=== PATIENT | male | born 1970 | race Caucasian/White ===

== ENCOUNTER 2024-02-28 13:57 | Outpatient (CLI) | payer OTHER, SELFPAY | END 2024-02-28 13:58 | disposition home or self-care (01) | LOC: LKVREF 13:58 | PROVIDERS: PCP Emergency Medicine; Visit Provider Emergency Medicine | DX: R07.89 Other chest pain (principal) | CPT/HCPCS: 86140 ==

== ENCOUNTER 2024-03-11 13:58 | Outpatient (CLI) | payer OTHER, SELFPAY ==
--- OUTSIDE RECORDS SUMMARY | 2024-03-11 14:02 | XMS_ITS | Data Portability ---
Author Organization [place] [facility] Address [address] [place] [address] Care Team Providers Care Putty Patcher Name Role Phone ALBARO GUARDADO Primary Care Provider Assessment No assessment recorded. Plan of Treatment Reminders Order Date Submit Date Provider Last Modified By Organization Details Last Modified Time Details Appointments None recorded. Lab urinalysis , dipstick 2019 020 [email or web address] [facility], [facility], [address] [facility] [address], [place], [address], 0 16:43:46 PSA, serum or plasma 2019 021 [email or web address] [facility], [facility], [address], [place], [address], 1 08:51:40 PSA, serum or plasma 2020 022 [email or web address] [facility], [facility], [address], [place], [address], 2 17:34:35 PSA, serum or plasma 2020 022 [facility], [facility], [address], [place], [address], 2 17:34:35 PSA, serum or plasma 2021 022 [email or web address] [facility], [address], [address], [place], [address], 3 08:39:55 PSA, total, serum or plasma 2022 023 [email or web address] [facility], [address], [address], [place], [address], 4 10:39:05 Referral None recorded. Procedures bladder scan (PROC) 2019 020 [email or web address] [facility], [address], [address], [place], [address], 0 16:43:46 Surgeries None recorded. Imaging MRI, prostate, w/wo contrast 2019 020 [facility], [address], [address], [place], [address], 0 14:43:37 Medication Orders None recorded. Patient TargetsNo targets recorded. Patient InstructionsNo instructions recorded. Reason for Referral None Reported. Results Created Date Observation Date Name Description Value Unit Range Abnormal Flag Note LastModifiedBy Organization Detail LastModifiedTime 03/08/2020 bladd er scan (PROC ) Volume (in mL) 158 mLs Not Available [facility] [address], [place], [address], 03/08/2020 16:38:37 03/08/2020 urina lysis , dipst ick pH-Status 7.5 Not Available [facility] [address], [place], [address], 03/08/2020 16:38:32 03/08/20 20 bladd er scan (PROC ) No observ ation record ed. [email or web address] [facility] [address], [place], [address], 03/08/2020 17:33:08 03/19/20 20 03/19/2020 MRI, prost ate, w/wo contr ast No observ ation record ed. [facility] [address], [place], [address], 03/22/2020 10:45:50 Result Notes None recorded. Problems Name Problem SNOMED Code Status Onset Date Resolution Date Notes Provider Name and Address Organization Details Recorded Time Prostate specific antigen above reference range [id number] Active 021 Katarnaldodylon reddy [facility] 1 17:03:26 Problem Notes None recorded. Procedures Surgical History Date Name Laterality Status Provider Name and Address Organization Details Recorded Time 2012 Colonoscopy completed Marimar Serra [facility] 1 09:16:04 [facility] 16:18:37 esophagogastroduodenoscopy [facility] 0 16:22:28 Imaging Results Imaging Date Name Status LastModified by Organiz ation Details LastModified Time 03/08/2020 bladder scan (PROC) completed [email or web address] [facility] [address] [facility] [address], [place], [address], 03/08/2020 17:33:08 03/19/2020 MRI, prostate, w/wo contrast completed [facility] [address], [place], [address], 03/22/2020 10:45:50 Procedure Notes None recorded. Medical Equipment None Reported. Allergies Allergen ID Allergen Name Allergen Category Reaction Reaction Severity Criticality Documentation Date Start Date Code Code System Note Provider Name and Address Organization Details Recorded Time 923189 aspirin medicatio n Not available Not available Not available 03/08/2020 1191 RxNorm Martina reddy [facility] 16:18:19 Medications Name Sig Start Date Stop Date Status Note LastModified by Organization Details LastModified Time prednisone 20 mg tablet TAKE 2 TABLETS BY MOUTH EVERY DAY 12/27 completed Not Available Not Available Not Available omeprazole 40 mg capsule,srinivas yed release TAKE 1 CAPSULE BY MOUTH DAILY active Not Available Not Available No t Available omeprazole 10/25 completed Not Available Not Available Not Available Vitals Date Recorded Body height Body mass index (BMI) Body weight Provider Name and Address Organization Details Last Updated DateTime 12/27/2022 172.72 cm 28.1 kg/m2 80386.59 g Anabelle Stephens [facility] 12/27/2022 09:52:16 Date Recorded Body height Body mass index (BMI) Body weight Heart rate Provider Name and Address Organization Details Last Updated DateTime 03/08/2020 172.72 cm 27.4 kg/m2 12950.63 g 52 /min Martina Romero [facility] 03/08/2020 16:44:50 Date Recorded Body height Body mass index (BMI) Body weight Provider Name and Address Organization Details Last Updated DateTime 10/25/2020 172.72 cm 27.4 kg/m2 39861.63 g April Chung [facility] 10/25/2020 16:58:41 Date Recorded Body height Body mass index (BMI) Body weight Provider Name and Address Organization Details Last Updated DateTime 11/07/2021 172.72 cm 28.1 kg/m2 86355.59 g Libby Rene [facility] 11/07/2021 16:51:37 Social History Question Answer Notes LastModified by Organizat ion Details LastModified Time Tobacco Smoking Status Former Smoker Martina reddy [facility] 03/08/2020 16:18:51 What Is Your Level Of Alcohol Consumption? Occasional Information not available 10/25/2020 How Many Times Per Week Do You Consume Alcohol? 5-7 Times Per Week [email or web address] Information not available 12/27/2022 What Is Your Level Of Caffeine Consumption? Occasional Information not available 10/25/2020 When Did You Quit Smoking? 14+yearsshanda [email or web address] Information not available 12/27/2022 What Was The Date Of Your Most Recent Tobacco Screening? 12/27/2022 [email or web address] Information not available 12/27/2022 Has Tobacco Cessation Counseling Been Provided? No [email or web address] Information not available 12/27/2022 Do You Or Have You Ever Used Any Other Forms Of Tobacco Or Nicotine? No [email or web address] Information not available 12/27/2022 Sex: Unknown Functional Status None recorded. Mental Status None recorded. Family History Relationship Description Onset Age of this Age Resolved Age Notes LastModified by Organization Details LastModified Time Father Family history of cardiac disorder [email or web address] Not available 2019 16:22:42 Paternal Grandmother Family history of diabetes mellitus [email or web address] Not available 2019 16:22:50 Medical History Condition Response Sexually Transmitted Infection N Diabetes N Bleeding Disorder N Other Y High Blood Pressure N Kidney Stones N Cancer N Lung Disease N Depression N High Cholesterol Y GERD/Acid Reflux N Heart Disease N Immunizations Vaccine Type Date Status Provider Name and Address Organization Details Recorded Time Influenza, split virus, quadrivalent, PF 03/19/2015 completed Libby reddy [facility] 11/07/2021 16:51:42 Influenza, split virus, quadrivalent, PF [facility] 16:51:42 COVID-19, mRNA, LNP-S, PF, 30 mcg/0.3 mL dose 04/04/2020 completed Libby reddy [facility] 11/07/2021 16:51:42 Influenza, split virus, trivalent, PF 02/25/2014 completed Libyb reddy [facility] 11/07/2021 16:51:42 Influenza, split virus, trivalent, PF 03/26/2011 completed Libby reddy [facility] 11/07/2021 16:51:42 COVID-19, mRNA, LNP-S, PF, 30 mcg/0.3 mL dose 03/09/2021 roxy reddy [facility] 11/07/2021 16:51:42 Influenza, split virus, quadrivalent, preservative 01/31/2021 completed Libby Rene null, [facility] 11/07/2021 16:51:42 Influenza, split virus, trivalent, preservative 03/13/2007 completed Libby Rene null, [facility] 11/07/2021 16:51:42 COVID-19, mRNA, LNP-S, PF, 30 mcg/0.3 mL dose 08/17/2020 completed Libby Rene null, [facility] 11/07/2021 16:51:42 Tdap 03/13/2007 completed Libby Rene null, [facility] 11/07/2021 16:51:42 Influenza, split virus, quadrivalent, PF 02/16/2016 completed Libby reddy, [facility] 11/07/2021 16:51:42 COVID-19, mRNA, LNP-S, PF, 30 mcg/0.3 mL dose 09/07/2020 [facility] 16:51:42 Influenza, split virus, trivalent, preservative 02/22/2017 completed Libby reddy, [facility] 11/07/2021 16:51:42 Influenza, split virus, quadrivalent, PF 04/04/2019 completed Libby reddy, [facility] 11/07/2021 16:51:42 MMR 03/31/2015 completed Libby Rene null, [facility] 11/07/2021 16:51:42 Influenza, split virus, trivalent, preservative 02/24/2013 completed Libby reddy, [facility] 11/07/2021 16:51:42 Influenza, split virus, trivalent, preservative 02/12/2012 [facility] 16:51:42 Td (adult), 2 Lf tetanus toxoid, preservative free, adsorbed 02/21/2017 completed [place] [facility] 11/07/2021 16:51:42 Past Encounters Encounter ID Performer Location Encounter Start Date Encounter Closed Date Diagnosis/Indication Diagnosis SNOMED-CT Code Diagnosis ICD10 Code [id number] Renan Hernandez MD [facility] [address] [place] [address] 03/08/2020 16:15:40 03/17/2020 14:43:37 Prostate specific antigen above reference range 976820185 R97.20 [id number] Renan Hernandez MD [facility] [address] [facility] [address] [place] [address] 10/25/2020 16:53:03 10/27/2020 16:17:30 Prostate specific antigen above reference range 734495034 R97.20 [id number] Renan Hernandez MD [facility] [address] [facility] [address] [facility] [address] [place] [address] 11/07/2021 16:41:30 11/09/2021 11:16:06 Prostate specific antigen above reference range [id number] R97.20 [id number] Renan Hernandez MD [place] [address] [facility],[address] [place] [address] 12/27/2022 09:41:50 01/01/2023 14:52:36 Prostate specific antigen above reference range 656111622 R97.20 Health Concerns Section Related Observation LastModified by Organization Detai ls LastModified Time None Recorded Concern Status LastModified by Organization Details LastModified Time None Recorded Advance Directives Directive None Recorded Payers Encounter Date Sequence Insurance Name Policy Number Policy Hahn Covered Member ID Hahn Member ID Guarantor Name 03/08/2020 1 PREFERREDONE [id number] Ryan Chapmanilinger [id number] Ryan Raygoza Zeilinger 10/25/2020 1 PREFERREDONE [id number] Ryan Chapmanilinger [id number] Ryan Raygoza Zeilinger 11/07/2021 1 PREFERREDONE [id number] Ryan Cantu Zeilinger [id number] Ryan Raygoza Zeilinger 12/27/2022 1 PREFERREDONE [id number] Ryan Dumont [id number] Ryan Dumont Notes Date Note Type Note Provider Name and Address Organization Details Recorded Time 03/08/2020 text/html HPI Notes: Ryan is a 49 year old male patient with an elevated PSA, 3.9 in April 2019. He another PSA test with his work recently that was 4.0. No family history of prostate cancer. He has no urinary difficulties. He does have occasional penile pain with straining for bowel movements but no other urological complaints. Prior surgical history significant for umbilical hernia repair. Renan Hernandez MD [address] [place] [address],[address], [address], [facility] 03/08/2020 17:06:20 10/25/2020 text/html HPI Notes: 03/08/20: Ryan is a 50 year old male patient with an elevated PSA, 3.9 in April 2019. He another PSA test with his work recently that was 4.0. No family history of prostate cancer. He has no urinary difficulties. He does have occasional penile pain with straining for bowel movements but no other urological complaints. Prior surgical history significant for umbilical hernia repair. 10/25/20: Prostate MRI on 03/19/2020 shows 57 cc prostate with no suspicious lesions. He follows up with a PSA on 10/13/2020 which was 3.5. Renan Hernandez MD [address] [place] [address],[address], [place], [address], [facility] 10/25/2020 17:17:14 11/07/2021 text/html HPI Notes: 03/08/20: Ryan is a 50 year old male patient with an elevated PSA, 3.9 in April 2019. He another PSA test with his work recently that was 4.0. No family history of prostate cancer. He has no urinary difficulties. He does have occasional penile pain with straining for bowel movements but no other urological complaints. Prior surgical history significant for umbilical hernia repair. 10/25/20: Prostate MRI on 03/19/2020 shows 57 cc prostate with no suspicious lesions. He follows up with a PSA on 10/13/2020 which was 3.5. 11/07/21: Recent PSA 4.2 on 10/17/2021. No new urinary complaints. Renan Hernandez MD [address], [place], [address], [facility] 11/07/2021 18:08:27 12/27/2022 text/html HPI Notes: 03/08/20: Rayn is a 50 year old male patient with an elevated PSA, 3.9 in April 2019. He another PSA test with his work recently that was 4.0. No family history of prostate cancer. He has no urinary difficulties. He does have occasional penile pain with straining for bowel movements but no other urological complaints. Prior surgical history significant for umbilical hernia repair. 10/25/20: Prostate MRI on 03/19/2020 shows 57 cc prostate with no suspicious lesions. He follows up with a PSA on 10/13/2020 which was 3.5. 11/07/21: Recent PSA 4.2 on 10/17/2021. No new urinary complaints. 12/27/22: Most recent PSA is 4.4. He denies any bothersome urinary symptoms. Renan Hernandez MD [address], [place], [address], [facility] 12/27/2022 11:20:41
--- OUTSIDE RECORDS SUMMARY | 2024-03-11 14:02 | XMS_ITS | Clinical Summary ---
Author Organization [facility] [employer] [facility] Address [place], [place] [address] Care Team Providers Care Currency Counter Name Role Phone Akira Farnsworth MD Primary Care Provider Allergies Active Allergy Reactions Criticality Noted Date Comments Aspirin Throat Swelling/Closing Medications Medication Sig Dispensed Refills Start Date End Date Status omeprazole (PRILOSEC) 20 mg Delayed-Release capsule Take 1 capsule by mouth once daily before a meal. 0 01/28/2020 Active multivitamin (MVI) tablet Take 1 tablet by mouth once daily. 0 01/28/2020 Active omeprazole (PRILOSEC) 40 mg Delayed-Release capsuleIndications:Eo sinophilic esophagitis Take 1 capsule by mouth once daily. 90 capsule 3 01/28/2020 Active Active Problems Problem Noted Date Diagnosed Date Eosinophilic esophagitis 11/26/2019 Overview (11/26/2019): EGD 11/2019 EoE, food impaction Genital herpes, unspecified 03/12/2007 Tobacco use disorder 03/12/2007 Overview (03/12/2007): Chews tobacco Immunizations Name Administration Dates Next Due Influenza, IIV3 (Age >=3 years) 02/26/20 13,03/26/2011,02/23/2010, 7 Tdap 03/13/2007 03/13/2017 Family History Medical History Relation Name Comments Heart Disease Father Diabetes Maternal Grandmother Arthritis Other 1 Seizures Other 2 Diabetes Paternal Grandmother Relation Name Status Comments Father Maternal Grandmother Other 1 Other 2 Paternal Grandmother Social History Tobacco Use Types Packs/Day Years Used Date Smoking Tobacco: Some Days Cigarettes Smokeless Tobacco: Former Chew Tobacco Cessation:Ready to Q uit: Yes; Counseling Given: Yes Comments:chewing tobacco, trying to quit 02/17, now started smoking Alcohol Use Standard Drinks/Week Comments Yes 13.3 (1 standard drink = 0.6 oz pure alcohol) socially, 0-8 beers per wk Social Connections Answer Date Recorded Frequency of Communication with Friends and Fami ly Not on file 05/14/2021 Financial Resource Strain Answer Date R ecorded Difficulty of Paying Living Expenses Not on file 05/14/2021 Difficulty of Paying Living Expenses Not on file 05/14/2021 Sex and Gender Information Value Date Recorded Sex Assigned at Not on file Gender Identity Not on file Sexual Orientation Not on file Obstetrics History Last Filed Vital Signs Vital Sign Reading Time Taken Comments Blood Pressure 110/70 01/28/2020 4:13 PM CDT manual cuff Pulse 46 01/28/2020 4:13 PM CDT Temperature 36.9 ??C (98.4 ??F) 08/28/2008 4 :21 PM CDT Respiratory Rate - - Oxygen Saturation 98% 01/28/2020 4:1 3 PM CDT Inhaled Oxygen Concentration - - Weight 86.5 kg (190 lb 9.6 oz) 01/28/20 20 4:13 PM CDT Height 173.4 cm (5' 8.25) 03/13/2007 1 :06 PM CDT Body Mass Index - - Plan of Treatment Health Maintenance Due Date Last Done Comments Depression screening for age 12+ 1980 HIV for age 15-65 09/26/1983 BMI (ht and wt on same day) for age 18+ 1986 Hepatitis C screening for age 18-79 1986 Colonoscopy through age 75 2013 Lipids for age 45-75 2013 04/01/2007 Tetanus booster 03/13/2017 03/13/2007 Zoster (shingles) series for age 50+ (1 of 2) 2018 COVID-19 vaccine series (2023- season) 2024 Influenza for age 50-64 01/13/2024 02/26/20 13, 03/26/2011, 02/23/2010, Additional history exists Tdap Completed 03/13/2007 Pneumococcal series for age 6-64 Aged Out No longer eligible based on patient's age to complete this topic Procedures Procedure Name Priority Date/Time Associated Diagnosis Comments LIPID PANEL Routine 04/01/2007 2:56 PM HEAT TREAT SUPERVISOR Routine General Medical Exam from Last 3 Months or Most Recently Relevant to Health Maintenance Results * (ABNORMAL) LIPID PANEL (04/01/2007 2:56 PM HEAT TREAT SUPERVISOR) CHOLESTEROL,TOTAL 188 110 - 199 mg/dL [facility] TRIGLYCERIDES 154(H) <150 mg/dL [facility] HDL CHOLESTEROL 46 >40 mg/dL [facility] CHOL/HDL RATIO 4.[address] [facility] LDL CHOLESTEROL 111 <131 mg/dL [facility] PATIENT STATUS Fasting [facility] Blood specimen (specimen) BLOOD SPECIMEN / Unknown 04/01/2007 2:56 PM HEAT TREAT SUPERVISOR 04/01/2007 2:55 PM HEAT TREAT SUPERVISOR Akira Farnsworth MD CHEMISTRY [facility] [address] [place] [address] from Last 3 Months or Most Recently Relevant to Health Maintenance Care Teams Currency Counter Relationship Specialty Start Date End Date Akira Farnsworth MD [address] [place] [id number] PCP - General 02/25/07
[2024-03-11 15:03] VITALS: BP 151/84
--- NOTE | 2024-03-11 15:24 | W.PM.STED ---
Stress Test Note Date Date of test: 03/11/24 Providers Primary care provider: Sabrina Lopez Stress test physician: Jesus Jauregui Stress Test Note Stress test ordered: Stress Echo Indication for test: Chest pressure/shortness of breath Results discussion: This very nice gentleman presents for the above test after discussion the risks benefits and side effects he would like to proceed cardiac stress test medical history form is reviewed entirely. Pretest EKG shows normal sinus rhythm with a ventricular rate of 60, there is no acute ST wave changes notable. Blood pressure is 147/87 standard Soren protocol is employed over a time course of 11 minutes. Maximum metabolic equivalent was 12.1 blood pressure max was 157/65. During this test there is no ST wave changes suggestive of ischemia. Patient recovered normally, conditioning was felt to be good Impression: Negative electrographic portion of stress echo, subjectively neg Follow up suggested: Await echo images these will be read by Cardiology, clinical correlation with these will be needed, he left this testing facility in good condition. No complication
== END 2024-03-11 13:59 | disposition home or self-care (01) ==
LOC: STRESS 14:00
PROVIDERS: PCP Emergency Medicine; Visit Provider Emergency Medicine
DX: R07.89 Other chest pain (principal); R06.02 Shortness of breath
CPT/HCPCS: 93016; 93325; 93351

== ENCOUNTER 2024-11-04 09:05 | Outpatient (CLI) | payer OTHER, SELFPAY | END 2024-11-04 09:06 | disposition home or self-care (01) | PROVIDERS: PCP Emergency Medicine; Visit Provider Emergency Medicine | DX: E78.2 Mixed hyperlipidemia (principal); R97.20 Elevated prostate specific antigen [PSA]; Z12.5 Encounter for screening for malignant neoplasm of prostate | CPT/HCPCS: 80048; 80061; 84153; 84154 ==